=== PATIENT | male | born 1995 | race Caucasian/White ===

== ENCOUNTER 2016-12-30 01:40 | Emergency (ER) | payer BC ==
[~2016-12-30] VITALS: Ht 175.3 cm; Wt 79.2 kg
[~2016-12-30 01:40] MED LIST: GUAN1TAB12 PO; SERT50TA PO
[2016-12-30 01:45] VITALS: TEMP 36.9; Ht 175.3 cm; Wt 79.2 kg
[2016-12-30] MEDS ORDERED: XYLOCAINE 1%/SOD BICARB 20 ML VIAL INFIL ONE (02:00)
[2016-12-30] MEDS ORDERED: CLON0.5T3 PO (02:28)
[2016-12-30 02:58] VITALS: BP 129/61; PULSE 82; O2SAT 97
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
== END 2016-12-30 03:18 | disposition home or self-care (01) ==
LOC: C.EDB 01:41 → C.EDA 03:18
DX: S01.511A Laceration without foreign body of lip, initial encounter (principal); Y04.0XXA Assault by unarmed brawl or fight, initial encounter; F32.9 Major depressive disorder, single episode, unspecified

== ENCOUNTER 2017-02-04 02:29 | Inpatient (IN) | payer BC, OTHER ==
[~2017-02-04] VITALS: Ht 175.3 cm; Wt 75.6 kg
[~2017-02-04 02:29] MED LIST changes: +CLON0.5T3 PO
[2017-02-04 03:12] LABS: BASO % 0.4 %; BASO ABS # 0.03 K/uL (0-0.2); COMPLETE YES; EOS % 2.4 %; IG% 0.6 %; LYMPH % 36.4 %; LYMPH ABS # 2.57 K/uL (1.2-3.4); MEAN CELL VOLUME 83.5 fL (80-100); MEAN CORPUSCULAR HEMOGLOBIN 27.9 pg (25-34); MEAN CORPUSCULAR HGB CONC 33.4 g/dl (32-36); MEAN PLATELET VOLUME 11.3 fL (7.4-10.4); MONO % 3.8 %; NEUT % 56.4 %; PLATELET COUNT 286 K/uL (130-400); RED BLOOD COUNT 5.27 M/uL (4.7-6.1); WHITE BLOOD COUNT 7.06 K/uL (4.8-10.8)
[2017-02-04 03:35] LABS: ALT/SGPT 55 U/L (12-78); AST/SGOT 32 U/L (15-37); BLOOD UREA NITROGEN 8 mg/dl (7-18); BUN/CREATININE RATIO 8.9 (10-20); CALCIUM 8.4 mg/dl (8.5-10.1); CARBON DIOXIDE 27 mmol/L (21-32); CHLORIDE 107 mmol/L (98-107); CREATININE 0.87 mg/dl (0.60-1.40); GLUCOSE 81 mg/dl (70-99); POTASSIUM 3.4 mmol/L (3.5-5.1); SODIUM 143 mmol/L (136-145)
[2017-02-04 03:43] LABS: ALKALINE PHOSPHATASE 60 U/L (45-117)
[2017-02-04 04:01] LABS: ACETAMINOPHEN < 2 ug/ml (10-30)
[2017-02-04 04:55] LABS: MANUAL MICROSCOPIC REQUIRED? NO; REVIEW REQ? NO; URINE APPEARANCE CLEAR (CLEAR); URINE BILIRUBIN NEG (NEG); URINE COLOR YELLOW; URINE NITRITE NEG (NEG); URINE SPECIFIC GRAVITY 1.006 (1.000-1.030); UROBILINOGEN NEG (NEG)
[2017-02-04 05:13] LABS: BENZODIAZEPINE, URINE NEG (NEG); COCAINE,URINE NEG (NEG); PHENCYCLIDINE, URINE NEG (NEG)
[2017-02-04] MEDS ORDERED: NURSING VERBAL MED ORDER ONE (06:45)
[2017-02-04 07:01] VITALS: O2SAT 100
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
[2017-02-04] MEDS ORDERED: ACETAMINOPHEN 325 MG TAB PO PRN (07:30)
[2017-02-04] MEDS ORDERED: BISMUTH SUBSALICYLATE PER ML OMNICELL CHARGE PO PRN (07:30)
[2017-02-04] MEDS ORDERED: SODIUM CHLORIDE 0.65% NA SOLN 45 ML (OCEAN) PRN (07:30)
[2017-02-04] MEDS ORDERED: MAGNESIUM HYDROXIDE SUSP 30 ML UDC PO PRN (07:30)
[2017-02-04] MEDS ORDERED: hydrOXYzine HCL 25 MG TAB PO PRN ×2 (07:30)
[2017-02-04] MEDS ORDERED: ALUMINUM/MAGNESIUM SUSP 30 ML UDC PO PRN (07:30)
[2017-02-04 07:41] VITALS: BP 128/78; PULSE 64; TEMP 36.4; Ht 175.3 cm; Wt 75.6 kg
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
[2017-02-05 06:39] VITALS: BP_SYST 114; BP_SYST 133; BP_DIAS 56; BP_DIAS 77; PULSE 57; PULSE 73; TEMP 36.5
--- NOTE | 2017-02-05 09:42 | Discharge Instructions ---
Discharge Information Report Includes Report will include the: Discharge Instructions & Summary Admission Admission Date / Time: Feb 04, 2017 at 06:38 Reason for Admission: Major Depressive Disorder Recurrent, 201 Discharge Discharge Diagnosis / Problem: Major depressive disorder, severe, recurrent. Condition at Discharge: Good Discharge Goals Goal(s): Improve function, Learn about illness, Therapeutic intervention Activity Recommendations Activity Limitations: resume your previous activity Lifting Limitations: none Exercise/Sports Limitations: none Shower/Bathe: no limitations Driving or Machine Use: no limitations . Instructions / Follow-Up Instructions / Follow-Up . SPECIAL CARE INSTRUCTIONS: 1. Follow through with your scheduled aftercare appointments. If unable to keep an appointment, please call to reschedule. 2. Take your medication only as prescribed. Medication should not be changed or stopped without the approval of your doctor. In the event of worsening symptoms or concerns about side effects, contact your doctor immediately. 3. Utilize new healthy coping skills, anger management skills, and stress management skills learned during your hospitalization. Journal feelings and process them with a support person. Identify stressors or situations that may result in relapse, deterioration or inappropriate behaviors and develop a plan to deal with those issues. 4. If your coping skills are ineffective and you are in crisis, contact your outpatient providers for direction. If unable to reach your providers, please call the CAN HELP LINE AT or go to the closest Emergency Room. 5. Avoid alcohol and un-prescribed drugs. 6. You have been provided with the Mental Health Advance Directives Pamphlet for your review. AFTERCARE APPOINTMENTS: * Please call your insurance company prior to your scheduled appointment to confirm your aftercare providers are covered. Take your insurance information to your appointments. . Discharge / Aftercare Planning Psychiatrist: Name: psychiatrist in [place] Service Rep[facility]r: Name: none . Follow-Up Care Plan for Follow-Up Care: Patient has a follow up appointment scheduled with Dr. Basilio Gaviria his psychiatrist in [facility] but his mother has put out a call to his practice to attempt to get appointment moved up. Patient is also agreeable to accepting contact information for [facility] to obtain counseling for depression and anxiety and that could further explore and work on his alcohol use. Current Hospital Diet Patient's current hospital diet: Regular Diet Discharge Diet Recommended Diet: Regular Diet Procedures Procedures Performed: No Pending Studies Pending Studies at Discharge: No Medical Emergencies . Who to Call and When: Medical Emergencies: For questions or emergencies related to your hospital stay, please contact the Inpatient Behavioral Health Unit at [phone]. A manager neonatal is on-call 12/06 for the Behavioral Health Unit for emergencies At any time you feel your situation is an emergency, you may also call 911 immediately. . Non-Emergent Contact Non-Emergency issues call your: Psychiatrist Advance Directives Existing Advance Directive: No Do You Have an Existing Mental: No Existing Living Will: No Existing Power of Errand Runner: No Advance Directives Info Given: To Pt/S.O. Discharge Summary Admission HPI Per the Admitting provider: 21 yo [facility]. His girlfriend broke off two year long relationship with him last night. He consumed 6 to 7 drinks and then tied a belt around his neck. His girlfriend walked in on him and called emergency services. Patient reports that door was supposed to have been locked so no one could enter but he had forgotten to lock it. CT scan of neck in the emergency department revealed normal study. He reports that he had felt hopeful about upcoming job interview on 02/06/2017 and was looking forward to graduation in March. He reports that he had felt very upset by breakup with girlfriend and now regrets what he had done. 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 History of facial tics for which he takes Intuniv and Klonopin as prescribed by his psychiatrist in [place] Dr. Basilio Gaviria who also prescribes him Zoloft for anxiety. Chronic history of anxiety and excessive worrying which has been relieved by Zoloft which he has been on for 7 years. Denies any vocal tics. Denies any manic episodes. Appetite great. Weight stable. Concentration good. Energy level good. Sleeping 6 to 8 hours per night. Denies irritability. Currently denies any thoughts to harm himself or others. Denies any auditory or visual hallucinations or paranoia. Hospital Course (1) Suicidal ideation Suicidal ideation now resolved. Feels more hopeful about his future and well supported. (2) Depression Mood has improved significantly. Reviewed with patient consideration of increasing Zoloft dose further but he wishes to discuss with his longstanding outpatient psychiatrist Dr. Basilio Gaviria. (3) Chronic motor tic disorder Continues to have facial tics observed to increase when more anxious. (4) Generalized anxiety disorder Anxiety level has improved significantly over course of hospitalization. Risk Factors Assessment Male: Yes : Yes /single/: Yes Mental Health Diagnoses: Yes Family history of suicide: No Previous psychiatric stay: No Smoker: No Protective Factors Assessment : No Responsible for young children: No Employed: No Stable relationships: No Day of Discharge Assessment Patient reports that mood is significantly better. Feels well supported by his family (mother and sister) and sister traveled from [place] to visit last night and is available to pick him up today at discharge and provide additional support. Patient had several roommates visit yesterday and feels well supported. Denies any thoughts to harm himself or others. He is looking forward to job interview tomorrow and hopeful about his future. Brief intervention offered to patient and spent 15 minutes discussing Alcohol use and he accepts referral to [place] program for further counseling but is in the precontemplation stage of recovery. Laboratory Refer to printed laboratory reports Total Time Total Time Spent (min): Less than 30 minutes Tobacco Cessation at Discharge FDA approved Prescription: non-smoker Problem Qualifiers (1) Depression: Depression Type: major depressive disorder Major depression recurrence: recurrent Active/Remission status: currently active Major depression episode severity: severe Psychotic features: without psychotic features Qualified Codes: F33.2 - Major depressive disorder, recurrent severe without psychotic features
== END 2017-02-05 11:03 | disposition home or self-care (01) | DRG 885 ==
LOC: EDBD 02:29 → C.EDA 02:30 → C.MHU 06:38
PROVIDERS: ADMIT Psychiatry & Neurology Psychiatry; ATTEND Psychiatry & Neurology Psychiatry
DX: F33.2 Major depressive disorder, recurrent severe without psychotic features (principal); F95.1 Chronic motor or vocal tic disorder; F41.1 Generalized anxiety disorder; T14.91 Suicide attempt; X83.8XXA Intentional self-harm by other specified means, initial encounter; Y92.89 Other specified places as the place of occurrence of the external cause; Z91.5 Personal history of self-harm; Z79.899 Other long term (current) drug therapy; Z87.39 Personal history of other diseases of the musculoskeletal system and connective tissue